=== PATIENT | male | born 1980 | race African-American/Black ===

== ENCOUNTER 2018-03-20 04:20 | Emergency (ER) | payer MEDICAID ==
[~2018-03-20] VITALS: Ht 172.7 cm; Wt 84.0 kg
[2018-03-20 07:47] LABS: CLARITY URINE CLEAR (CLEAR); COLOR URINE YELLOW (YELLOW); KETONES URINE NEGATIVE (NEGATIVE); LEUKOCYTE ESTERASE URINE TRACE (NEGATIVE); NITRITE URINE NEGATIVE (NEGATIVE); OCCULT BLOOD URINE 1+ (NEGATIVE); PH URINE 5.5 (4.5-8.0); PROTEIN URINE NEGATIVE (NEGATIVE); SPECIFIC GRAVITY URINE 1.024 (1.005-1.030); UROBILINOGEN URINE 0.2 E.U./dL (0.2-1.0)
[2018-03-20] MEDS ORDERED: CEFTRIAXONE SODIUM 250 MG/VIAL IM ONE (09:00)
[2018-03-20] MEDS ORDERED: LIDOCAINE HCL/PF 1% 2ML VIAL INFIL ONE (09:00)
[2018-03-20] MEDS ORDERED: AZITHROMYCIN 500 MG TABLET PO ONE (09:00)
[2018-03-20] MEDS ORDERED: LIDOCAINE HCL/PF 1% 10 MG/ML 5ML VIAL IJ NR (09:12)
[2018-03-20 09:41] VITALS: BP 122/55
== END 2018-03-20 09:44 | disposition home or self-care (01) ==
LOC: ER 07:28
DX: N34.2 Other urethritis (principal); R31.9 Hematuria, unspecified
CPT/HCPCS: 81003; 96372; 99283; J0696; J3490

== ENCOUNTER 2019-05-08 09:11 | Emergency (ER) | payer MEDICAID ==
[~2019-05-08] VITALS: Ht 172.7 cm; Wt 84.0 kg
[2019-05-08 10:01] VITALS: BP 135/75
== END 2019-05-08 11:47 | disposition home or self-care (01) ==
LOC: ER 09:38
DX: T78.40XA Allergy, unspecified, initial encounter (principal); R21 Rash and other nonspecific skin eruption; X58.XXXA Exposure to other specified factors, initial encounter
CPT/HCPCS: 99282; 99283

== ENCOUNTER 2021-01-28 08:46 | Emergency (ER) | payer MEDICAID ==
[~2021-01-28] VITALS: Ht 172.7 cm; Wt 88.0 kg
[2021-01-28] MEDS ORDERED: IBUPROFEN 600MG TABLET PO ONE (09:15)
[2021-01-28 09:25] VITALS: BP 136/68
[2021-01-28] MEDS ORDERED: PENI500T MT (10:02)
[2021-01-28] MEDS ORDERED: DEXAMETHASONE 4MG TABLET PO ONE (10:15)
[2021-01-28] MEDS ORDERED: IBUP-2029 MT (10:22)
== END 2021-01-28 10:29 | disposition home or self-care (01) ==
LOC: ER 08:46
DX: J02.9 Acute pharyngitis, unspecified (principal); F41.9 Anxiety disorder, unspecified
CPT/HCPCS: 87070; 87430; 99283; J8540

== ENCOUNTER 2022-01-07 05:57 | Emergency (ER) | payer MEDICAID, OTHER ==
[~2022-01-07] VITALS: Ht 172.7 cm; Wt 89.1 kg
[~2022-01-07 05:57] MED LIST: IBUP-2029 MT; PENI500T MT
[2022-01-07 06:04] VITALS: BP 119/66
[2022-01-07] MEDS ORDERED: ACETAMINOPHEN 325MG TABLET PO ONE (06:45)
[2022-01-07] MEDS ORDERED: IBUP-2028 PO (07:40)
== END 2022-01-07 08:19 | disposition home or self-care (01) ==
LOC: ER 06:26
DX: S90.31XA Contusion of right foot, initial encounter (principal); F41.9 Anxiety disorder, unspecified; X58.XXXA Exposure to other specified factors, initial encounter; Y93.89 Activity, other specified; Y92.9 Unspecified place or not applicable
CPT/HCPCS: 73620; 99283

== ENCOUNTER 2022-04-05 18:32 | Emergency (ER) | payer OTHER ==
[~2022-04-05] VITALS: Ht 172.7 cm; Wt 87.0 kg
[~2022-04-05 18:32] MED LIST changes: +IBUP-2028 PO
[2022-04-05 18:53] VITALS: BP 117/75
== END 2022-04-05 23:16 | disposition left against medical advice (07) ==
LOC: ER 18:32
DX: Z53.21 Procedure and treatment not carried out due to patient leaving prior to being seen by health care provider (principal)

== ENCOUNTER 2022-07-12 11:02 | Emergency (ER) | payer OTHER ==
[~2022-07-12] VITALS: Ht 172.7 cm; Wt 87.0 kg
[2022-07-12 11:04] VITALS: BP 142/76
[2022-07-12] MEDS ORDERED: IBUP-2029 MT (11:40)
[2022-07-12] MEDS ORDERED: CEPH500C2 MT (11:40)
== END 2022-07-12 12:20 | disposition home or self-care (01) ==
LOC: ER 11:02
DX: K13.0 Diseases of lips (principal)
CPT/HCPCS: 99283

== ENCOUNTER 2025-03-09 13:15 | Emergency (ER) | payer OTHER ==
[~2025-03-09] VITALS: Ht 172.7 cm; Wt 90.7 kg
[~2025-03-09 13:15] MED LIST changes: +CEPH500C2 MT
[2025-03-09 13:45] VITALS: TEMP 36.6; O2SAT 100
[2025-03-09 17:02] LABS: CLARITY URINE CLEAR (CLEAR); COLOR URINE YELLOW (YELLOW); GLUCOSE URINE NEGATIVE (NEGATIVE); KETONES URINE NEGATIVE (NEGATIVE); LEUKOCYTE ESTERASE URINE TRACE (NEGATIVE); NITRITE URINE NEGATIVE (NEGATIVE); OCCULT BLOOD URINE 2+ (NEGATIVE); PH URINE 5.5 (4.5-8.0); PROTEIN URINE NEGATIVE (NEGATIVE); SPECIFIC GRAVITY URINE 1.017 (1.005-1.030); UROBILINOGEN URINE 0.2 E.U./dL (0.2-1.0)
[2025-03-09 17:16] LABS: BACTERIA URINE TRACE; SQUAMOUS EPITHELIAL CELL URINE FEW /lpf (RARE/1+)
[2025-03-09] MEDS ORDERED: DOXY100T2 MT (17:51)
[2025-03-09] MEDS ORDERED: PHEN-909 MT (18:05)
[2025-03-09] MEDS: CEFTRIAXONE SODIUM 500MG VIAL IM ONE (18:15)
[2025-03-09 18:27] VITALS: BP 122/77; PULSE 62; RESP 18; O2SAT 100
[2025-03-09] MEDS ORDERED: IBUP-2030 MT (18:33)
== END 2025-03-09 18:30 | disposition home or self-care (01) ==
LOC: ER 13:15
DX: N39.0 Urinary tract infection, site not specified (principal); F41.9 Anxiety disorder, unspecified; Z79.1 Long term (current) use of non-steroidal anti-inflammatories (NSAID); Z79.899 Other long term (current) drug therapy
CPT/HCPCS: 81003; 96372; 99283; 87591; J0696; Z7610

== ENCOUNTER 2025-05-05 04:48 | Emergency (ER) | payer OTHER ==
[~2025-05-05] VITALS: Ht 188 cm; Wt 96.0 kg
[~2025-05-05 04:48] MED LIST changes: +DOXY100T2 MT; +IBUP-1455 MT; -IBUP-2029 MT; +IBUP-2030 MT; +PHEN-909 MT
[2025-05-05 04:58] VITALS: O2SAT 99
[2025-05-05] MEDS: LIDOCAINE HCL/EPINEPHRINE 1%-EPI 1:100,000 20ML VIAL INFIL ONE (05:30)
[2025-05-05 06:06] LABS: HEMATOCRIT. 40.2 % (42.0-52.0); HEMOGLOBIN. 13.0 g/dL (14.0-18.0); MEAN PLATELET VOLUME 8.9 fl (7.4-10.4); PLATELET 202 x1000/uL (130-400); RED BLOOD CELL COUNT 4.53 mill/uL (4.7-6.1); RED CELL DISTRIBUTION WIDTH 14.5 % (11.6-14.6)
[2025-05-05] MEDS: SODIUM CHLORIDE 0.9% 1,000 ML IV ONE (06:17)
[2025-05-05] MEDS: TETANUS, DIPHTHERIA, PERTUSSIS VAC/PF 0.5ML (>10YR OLD) IM ONE (06:18)
[2025-05-05 06:21] LABS: CREATININE 1.5 mg/dL (0.6-1.3); UREA NITROGEN BLOOD 10 mg/dL (9-23)
[2025-05-05 06:22] LABS: ETHANOL BLOOD 215 mg/dL (<10)
[2025-05-05 06:23] LABS: ASPARTATE AMINOTRANSFERASE 32 IU/L (<34); PROTEIN TOTAL 6.7 g/dL (6.0-8.3)
[2025-05-05 06:24] LABS: BILIRUBIN DIRECT < 0.1 mg/dL (<=3.0); BILIRUBIN TOTAL 0.3 mg/dL (0.1-1.0)
[2025-05-05] MEDS: ACETAMINOPHEN 1000MG/100ML 100 ML IV ONE (06:35)
[2025-05-05] MEDS ORDERED: TOPUD PO (06:38)
[2025-05-05 06:41] LABS: EOSINOPHILS % MANUAL 2.0 % (0.0-5.0); LYMPHOCYTES % MANUAL 26.0 % (20.0-50.0); MONOCYTES % MANUAL 3.0 % (2.0-8.0); NEUTROPHILS % MANUAL 69.0 % (45.0-75.0); PLATELET ESTIMATE NORMAL
[2025-05-05 07:42] VITALS: BP 128/75; PULSE 72; RESP 15; TEMP 36.9; O2SAT 99
== END 2025-05-05 08:04 | disposition home or self-care (01) ==
LOC: ER 04:48
DX: S61.512A Laceration without foreign body of left wrist, initial encounter (principal); Z79.1 Long term (current) use of non-steroidal anti-inflammatories (NSAID); V89.2XXA Person injured in unspecified motor-vehicle accident, traffic, initial encounter; Y93.89 Activity, other specified; Y92.410 Unspecified street and highway as the place of occurrence of the external cause; Y99.8 Other external cause status
CPT/HCPCS: 80076; 80048; 80320; 83690; 85025; 36415; 73110; 70450; 72125; 74176; 90715; 12001; 90471; 96361; 96374; 99285; J2004; J7030; Z7610 ×2; G0480; J0131

== ENCOUNTER 2025-05-16 12:20 | Emergency (ER) | payer OTHER ==
[~2025-05-16] VITALS: Ht 172.7 cm; Wt 88.0 kg
[~2025-05-16 12:20] MED LIST changes: +TOPUD PO
[2025-05-16 12:27] VITALS: TEMP 37; O2SAT 100
[2025-05-16 15:10] VITALS: BP 129/87; PULSE 81; RESP 18; O2SAT 100
== END 2025-05-16 15:10 | disposition home or self-care (01) ==
LOC: ER 12:20
DX: S61.021D Laceration with foreign body of right thumb without damage to nail, subsequent encounter (principal); Z79.1 Long term (current) use of non-steroidal anti-inflammatories (NSAID); F41.9 Anxiety disorder, unspecified; Z79.899 Other long term (current) drug therapy; X58.XXXD Exposure to other specified factors, subsequent encounter
CPT/HCPCS: 99281; 99282

== ENCOUNTER 2025-05-18 22:40 | Emergency (ER) | payer OTHER ==
[~2025-05-18] VITALS: Ht 172.7 cm; Wt 89.9 kg
[2025-05-18 23:41] VITALS: O2SAT 99
[2025-05-19 03:31] VITALS: TEMP 37
[2025-05-19] MEDS: DEXAMETHASONE 10 MG/ML VIAL IM ONE (03:34)
[2025-05-19] MEDS: KETOROLAC 30MG/ML VIAL IM ONE (03:34)
[2025-05-19] MEDS: METOCLOPRAMIDE HCL 10MG TABLET PO ONE (03:34)
[2025-05-19 03:35] VITALS: TEMP 98.6
[2025-05-19] MEDS: ACETAMINOPHEN 325MG TABLET PO ONE (03:35)
[2025-05-19] MEDS ORDERED: BACL-141 MT (03:49)
[2025-05-19 04:07] VITALS: BP 139/79; PULSE 54; RESP 15; O2SAT 100
== END 2025-05-19 04:14 | disposition home or self-care (01) ==
LOC: ER 23:08
DX: G44.209 Tension-type headache, unspecified, not intractable (principal); R68.84 Jaw pain; F41.9 Anxiety disorder, unspecified; Z79.1 Long term (current) use of non-steroidal anti-inflammatories (NSAID); Z79.52 Long term (current) use of systemic steroids
CPT/HCPCS: 99285; 70486; 96372; J8597; J1100; J1885; Z7610